=== PATIENT | female | born 1950 | race Caucasian/White ===

== ENCOUNTER 2020-11-07 09:32 | Outpatient (CLI) | payer MEDICARE, SELFPAY ==
--- NOTE | ~2020-11-07 | XR_ITS ---
XR hip BI wo pelvis 11/07/2020 10:11 Indication: Bilateral osteoarthritis of the hips Procedure: 2 views each hip Comparison: 01/23/2019 Findings: There is advanced osteoarthritis of the hips, severe on the left and moderate on the right. No fracture or traumatic malalignment. Sacral foramen are symmetric. Pelvic rings are intact. No sig nificant soft tissue abnormality. Impression: 1: Advanced osteoarthritis of the hips, severe on the left and moderate on the right. Reviewed, dictated and finalized at location B. 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
[2020-11-07 10:18] LABS: Alanine Aminotransferase 21 U/L (14-59); Albumin Level 3.9 g/dL (3.4-5.0); Alkaline Phosphatase 109 U/L (46-116); Anion Gap 7 mmol/L (8-16); Aspartate Amino Transferase 14 U/L (15-37); Bilirubin,Total 0.3 mg/dL (0.00-1.00); Blood Urea Nitrogen 9 mg/dL (7-18); Calcium 9.3 mg/dL (8.5-10.1); Carbon Dioxide 33 mmol/L (21-32); Chloride 104 mmol/L (98-108); Cholesterol 208 mg/dL (0-200); Estimated Glomerular Filt Rate > 60; Glucose 83 mg/dL (70-99); HDL Direct 56 mg/dL (40-60); LDL Cholesterol Calculated 130 mg/dL (<130); Osmolality Calculated 295 mOsm/kg (285-295); Potassium 3.7 mmol/L (3.5-5.1); Sodium 144 mmol/L (136-145); Total Protein 7.8 g/dL (6.4-8.2); Triglycerides 112 mg/dL (0-150)
== END 2020-11-07 09:33 | disposition home or self-care (01) ==
LOC: CHSLAB 09:36
PROVIDERS: PCP Nurse Practitioner Family; Visit Provider Nurse Practitioner Family
DX: M16.0 Bilateral primary osteoarthritis of hip (principal); Z00.00 Encounter for general adult medical examination without abnormal findings; R03.0 Elevated blood-pressure reading, without diagnosis of hypertension; Z13.6 Encounter for screening for cardiovascular disorders
CPT/HCPCS: 36415; 73521; 80053; 80061

== ENCOUNTER 2021-10-22 09:29 | Outpatient (CLI) | payer MEDICARE, SELFPAY ==
[2021-10-22 10:59] LABS: Alanine Aminotransferase 19 U/L (14-59); Albumin Level 3.8 g/dL (3.4-5.0); Alkaline Phosphatase 108 U/L (46-116); Anion Gap 7 mmol/L (8-16); Aspartate Amino Transferase 13 U/L (15-37); Bilirubin,Total 0.3 mg/dL (0.00-1.00); Blood Urea Nitrogen 12 mg/dL (7-18); Calcium 9.3 mg/dL (8.5-10.1); Carbon Dioxide 30 mmol/L (21-32); Chloride 105 mmol/L (98-108); Cholesterol 197 mg/dL (0-200); Estimated Glomerular Filt Rate > 60; Glucose 89 mg/dL (70-99); HDL Direct 52 mg/dL (40-60); LDL Cholesterol Calculated 124 mg/dL (<130); Osmolality Calculated 292 mOsm/kg (285-295); Potassium 3.8 mmol/L (3.5-5.1); Sodium 142 mmol/L (136-145); Total Protein 6.8 g/dL (6.4-8.2); Triglycerides 107 mg/dL (0-150)
[2021-10-22 11:15] LABS: Hematocrit 39.8 % (35.0-42.0); Hemoglobin 13.2 g/dL (11.7-13.8); Mean Corpuscular HGB Conc 33.2 g/dL (32.0-36.0); Mean Corpuscular Hemoglobin 31.3 pg (27.0-31.0); Mean Corpuscular Volume 94.3 fL (78.0-102.0); Mean Platelet Volume 12.9 fl (9.2-11.8); Platelet Count Result 232 K/mm3 (150-420); Red Blood Count 4.22 M/mm3 (4.20-5.40); Red Cell Distribution Width 12.5 % (11.6-14.4); White Blood Count 4.5 K/mm3 (4.8-10.8)
== END 2021-10-22 09:30 | disposition home or self-care (01) ==
LOC: CHSLAB 09:31
PROVIDERS: PCP Family Medicine; Visit Provider Family Medicine
DX: R03.0 Elevated blood-pressure reading, without diagnosis of hypertension (principal); Z13.6 Encounter for screening for cardiovascular disorders
CPT/HCPCS: 36415; 80053; 80061; 85027

== ENCOUNTER 2024-11-08 08:31 | Outpatient (CLI) | payer MEDICARE, SELFPAY ==
--- NOTE | ~2024-11-08 | MM_ITS ---
EXAMINATION: MM screening nahed BI w edis HISTORY: Screening TECHNIQUE: Craniocaudal and mediolateral oblique 3-D tomosynthesis images were obtained and synthetic 2-D images were generated. CAD analysis was submitted and interpreted. COMPARISON: 01/23/2019 BREAST PARENCHYMAL COMPOSITION: Not dense: There are scattered areas of fibroglandular density. FINDINGS: There is no evidence of suspicious mass, calcification, or architectural distortion to sugg est malignancy in either breast. There has been no suspicious interval change. IMPRESSION: 1. No mammographic evidence of malignancy. 2. Recommend routine screening mammography in one year. BI-RADS Category 1: Negative Reviewed, dictated and finalized at location B. ERER
--- OUTSIDE RECORDS SUMMARY | 2024-11-08 08:59 | XMS_ITS | Clinical Summary ---
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 Gender Identity Not on file Sexual Orientation Not on file Plan of Treatment Health Maintenance Due Date Last Done Comments Colorectal Cancer Screening Colonoscopy (10 Years) 1950 Hepatitis C 1969 DTaP, Tdap and Td Vaccines ( 1 - Tdap) 1970 Mammogram Screening 1991 Zoster Vaccines (1 of 2) 2001 Annual Medicare Wellness Visit 2016 Dexa Scan (General) 2016 Pneumococcal Vaccine: 65+ Ye ars (1 of 1 - PCV) 2016 COVID-19 Vaccine (2023-2 5 season) 2024 Influenza Adult (#1) 2024 RSV Immunization or 60+ Years (1 - 1-dose 75+ series) 2026 Meningococcal B Vaccine Aged Out No l onger eligible based on patient's age to complete this topic Meningococcal Vaccine Aged Out No reynold bob eligible based on patient's age to complete this topic RSV Immunizations Under 20 Months Aged Out No longer eligible based on patient's age to complete this topic Medical Devices Implanted Type Area Milk Deliverer Device Identifier Shelf Expiration Date Model / Serial / Lot Shell Acetabular Stephanie [employer] Osseoti G7 3 Hole 52mm E - [id number] Implanted:Qty: 1 on 06/08/2023 by Naun Olivo MD at [facility] Hip Components Left: Hip [employer] 03/16/2033 [id number] / / [id number] Head Femoral Biolox Option Stephanie - [id number] Implanted:Qty: 1 on 06/08/2023 by Naun Olivo MD at [facility] Hip Components Left: Hip [employer] 02/18/2035 [id number] / / [id number] Screw Stephanie Bone 20mm - [id number] Implanted:Qty: 1 on 06/08/2023 by Naun Olivo MD at [facility] Screw Left: Hip [employer] 12/24/2032 [id number] / / [id number] Screw Stephanie Bone 35mm - [id number] Implanted:Qty: 1 on 06/08/2023 by Naun Olivo MD at [facility] Screw Left: Hip [employer] 02/15/2033 [id number] / / [id number] Vivacit-E Highly Crosslinked Polyethylene Liner Neutral Size E Implanted:Qty: 1 on 06/08/2023 by Naun Olivo MD at [facility] Left: Hip [employer] 04/20/2028 [id number] / / [id number] Femoral Stem Cementless Collared Offset 09/09 Taper Size 5 Implanted:Qty: 1 on 06/08/2023 by Naun Olivo MD at [facility] Left: Hip 03/02/2028 [id number] / / [id number] Explanted Type Area Milk Deliverer Device Identifier Shelf Expiration Date Model / Serial / Lot Drill Bit Stephanie 30mm - [id number] Explanted:Qty: 1 on 06/08/2023 at [facility] Drill Left: Hip [employer] [id number] / / Insurance Care Teams Letter Sorting Machine Operator Relationship Specialty Start Date End Date None, Provider, MD PCP - General UNKNOWN PHYSICIAN SPECIALTY 06/08/23
== END 2024-11-08 08:32 | disposition home or self-care (01) ==
PROVIDERS: PCP Internal Medicine; Visit Provider Internal Medicine
DX: Z12.31 Encounter for screening mammogram for malignant neoplasm of breast (principal)
CPT/HCPCS: 77063; 77067